=== PATIENT | female | born 1960 | race African-American/Black ===

== ENCOUNTER 2021-02-23 13:38 | Emergency (ER) | payer OTHER ==
[~2021-02-23] VITALS: Ht 157.5 cm; Wt 91.0 kg
[2021-02-23 13:54] VITALS: BP 155/92
[2021-02-23] MEDS ORDERED: DULO30CA2 PO (13:58)
[2021-02-23] MEDS ORDERED: SIMV10TA97 PO (13:58)
[2021-02-23] MEDS ORDERED: METO-411 PO (13:58)
[2021-02-23] MEDS ORDERED: LOSA100T32 PO (13:58)
[2021-02-23] MEDS ORDERED: ESCI-7 PO (14:06)
[2021-02-23] MEDS ORDERED: ATOR10TA69 PO (14:06)
[2021-02-23] MEDS ORDERED: AMLO10TA80 PO (14:06)
[2021-02-23] MEDS ORDERED: KETOROLAC 60MG/2ML VIAL IM ONE (14:15)
[2021-02-23] MEDS ORDERED: CYCL5TAB MT (15:11)
[2021-02-23] MEDS ORDERED: NAPR500T7 MT (15:11)
== END 2021-02-23 15:44 | disposition home or self-care (01) ==
LOC: ER 13:38
DX: S20.219A Contusion of unspecified front wall of thorax, initial encounter (principal); F32.A Depression, unspecified; E78.00 Pure hypercholesterolemia, unspecified; I10 Essential (primary) hypertension; Z96.659 Presence of unspecified artificial knee joint; V43.52XA Car driver injured in collision with other type car in traffic accident, initial encounter; Y93.89 Activity, other specified; Y92.488 Other paved roadways as the place of occurrence of the external cause
CPT/HCPCS: 71045; 73030; 93005; 96372; 99284; J1885